=== PATIENT | female | born 2005 ===

== ENCOUNTER → 2025-02-14 23:59 | Outpatient (BNV) | payer OTHER, SELFPAY ==
--- NOTE | 2025-02-15 09:26 | MHC.OFFVIS ---
Intake Visit Reasons: follow up Allergies raw apple Allergy (Intermediate, Uncoded 02/15/25 09:46) itchy throat HPI Comments Details: Student is here requesting test - I will also be doing orientation as this is her first day in program. 1) concerns: she is on depo but notes that her bleeding stopped and she feels anxious about this - she has had 2 shots and is due to have the second onetomorrow has appt at already - she missed last weeks, she took depo in Oct (she gave me date and I used the depo calendar to confirm that she was within range for protection - but don't remember the exact date). she will keep the appt - though we did discuss further injections - could occur here but both agree she may not be in program long as she is testing well - is interested in [facility] but hasn't applied yet. so she will keep the depo appts going through [facility] for now. Her concern about is understood deeper when she states that she got on MIRENA even though it was still in proper place. so she finds it hard to trust control since she didn't do anything wrong to have 'failed' the method. she had nexplanon as well but prefers depo ALLERGIES: itchy throat to raw apples - benadryl resolves, but she finds it easy to avoid them PCP: she was at [facility] but was told she had aged out at 19 (though was previously told 21). she has be healthy and was told that they accept only this one - so she wiill check w/ [facility] to keep her care and duaghters in the same building. MEDS: depo, albuterol inhaler - last used last week on walk to school PMH: asthma, ezcema she had 2 covid shots and doesn't know if she should have another - we discussed this - she will watch for this in our offerings as we [facility] flu[facility]covid [facility] MOOD: she has struggled w/ depressin in the past particularly notes that she got pretty despondent in early days of parenting - she wasn't treated for this and it seem to resolve on it's own. She has taken prozac (20 or 10mg was last dosage -) in the past and liked it (rx'd in [place]) but honestly she feels that the baby gives her more purpose and it's easier to fight the apathy that was her depressions main symptom - she has to get up and do things. so right now she feels that her mood is good she is happy to be in school and looking forward to finishing the test quickly and would consider going to [facility]. living w/ baby's father and his mother and 3 siblings - situation is ok for her - the 'smita' has some medical condition that requires a [employer]ISING [employer] but she doesn't know what it is ETOH - no, CIG - no including no vaped nicotine products, CANNABIS - yes before baby was born but notthing since and no desire. [facility] Medical History (Updated 02/15/25 @ 09:41 by MARIA TERESA Cassidy) History of depression Asthma, moderate persistent, well-controlled Family History (Updated 02/15/25 @ 09:44 by MARIA TERESA Cassidy) Mother Epilepsy Sister No problems noted. Brother Asthma Daughter No problems noted. Maternal Grandmother Alzheimer disease Heart problem Female Reproductive History Menstrual control method: progesterone injection Review of Systems Const Details: Counseling visit: All systems reviewed & are unremarkable except as noted in HPI and below Reports as per HPI Resp Reports as per HPI GI Reports as per HPI Musc Reports as per HPI Neuro Reports as per HPI Psych Reports as per HPI Physical Exam Const General: cooperative, healthy appearing and no acute distress Nutritional Appearance: well nourished Orientation/consciousness: oriented to person Limitations: no limitations HEENT Other: wnl Eyes Other: wnl Chest Other: easy breathing Resp Effort & Inspection: able to speak in complete sentences Skin Other: normal in appearance Neuro General: oriented to person Psych Other: see HPI Mental Status: mental status grossly normal Speech and movement: Clear speech present Attitude: cooperative Thought process: Normal thought process present Assessment & Plan Assessment & Plan (1) History of depression: Code(s): Z86.59 - Personal history of other mental and behavioral disorders Category: Medical (2) Irregular menses: Code(s): N92.6 - Irregular menstruation, unspecified Category: Medical (3) control counseling: Code(s): Z30.09 - Encounter for other general counseling and advice on contraception Category: Medical (4) Counseled about COVID-19 virus infection: Code(s): Z71.89 - Other specified counseling Category: Medical (5) Asthma, moderate persistent, well-controlled: Code(s): J45.40 - Moderate persistent asthma, uncomplicated Category: Medical (6) Counseling and coordination of care: Code(s): Z71.89 - Other specified counseling Category: Medical Plan 1) preg concerns: hcg - negative - offered monthly tests if that helps because she became preg on iud and finds it hard to trust control w/o a period marker 2) discussed mood and supports at length and discussed w/ her counselor on site as well - she seems quite stable and ready to finish education but does have a history of depression that suggests monitoring Orders: Orders AMB HCG Urine Test Today N92.6 - Irregular menstruation, unspecified, Z32.02 - Encounter for test, result negative Coding Level of Care Code New Pt Level 5 (99198) Diagnoses History of depression Z86.59 Irregular menses N92.6 control counseling Z30.09 Counseled about COVID-19 virus infection Z71.89 Asthma, moderate persistent, well-controlled J45.40 Counseling and coordination of care Z71.89 Additional Codes PHQ-9 - 16291 - PHQ-9 Billing: Yes ([id number]) CRAFFT Assessment Charge - Crafft: DIANDRA [id number] ([id number]) Time Spent (min) 60 Comment extensive counseling and coord of care PHQ-9 Over the last 2 weeks, how often have you been bothered by any of the following problems? 1. Little interest or pleasure in doing things: not at all 2. Feeling down, depressed, or hopeless: not at all 3. Trouble falling or staying asleep, or sleeping too much: several days 4. Feeling tired or having little energy: several days 5. Poor appetite or overeating: not at all 6. Feeling bad about yourself - or that you are a failure or have let yourself or your family down: not at all 7. Trouble concentrating on things, such as reading the newspaper or watching television: several days 8. Moving or speaking so slowly that other people could have noticed. Or the opposite - being so fidgety or restless that you have been moving around a lot more than usual: not at all 9. Thoughts that you would be better off or of hurting yourself in some way: not at all Total score: 3 Depression Screening Interpretation: Negative (new mom) Depression Screening Done: Yes 35941 - PHQ-9 Billing: Yes Source: Developed by Drs. Mitul Espinoza, Renita Rock, Kieran Sanders and colleagues, with an educational jacquelyn from [employer]. CRAFFT Screening Tool PART A: In the PAST 12 MONTHS, did you: Drink any alcohol (more than few sips)? (Do not count sips of alcohol taken during family or voodoo events.): No Smoke any marijuana or hashish?: No Use anything else to get high? (includes illegal drugs, over the counter/prescription drugs, or things that you sniff/garcia?): No CRAFFT Assessment Charge Crafft: TRICIAFFT [id number]
== END ==
PROVIDERS: PCP Nurse Practitioner Family; Visit Provider Nurse Practitioner Family
DX: N92.6 Irregular menstruation, unspecified (principal); J45.40 Moderate persistent asthma, uncomplicated; Z86.59 Personal history of other mental and behavioral disorders; Z30.09 Encounter for other general counseling and advice on contraception; Z71.89 Other specified counseling
CPT/HCPCS: 96127; 96160; 99205; 99417